=== PATIENT | female | born 1950 | race Caucasian/White ===

== ENCOUNTER → 2018-06-12 | Outpatient (CLI) | payer MEDICARE, OTHER ==
--- NOTE | 2018-06-14 22:42 | MR ---
MR scan right wrist. History wrist pain and swelling. Limited movement. Comparison none. TECHNIQUE: Multiplanar multiecho imaging of the right wrist was performed with no contrast. FINDINGS: The carpal bones are intact. There is no evidence of avascular necrosis. There is slight widening of the scapholunate joint space. There is no evidence of a fracture. There is a mild wrist joint effusio n. I see no focal bone destruction. Visualized metacarpals are intact. The flexor tendons of the wris t are intact. Extensor tendons are intact. I see no significant joint space narrowing. IMPRESSION: Slight widening of the scapholunate joint space consistent with old ligamentous injury. No fracture. No evidence of ligament or tendon tear. Wrist joint effusion consistent with nonspecific synovitis.
== END | disposition home or self-care (01) ==
LOC: RADMRIMAIN 16:31
PROVIDERS: ATTEND Nurse Practitioner Family
DX: M25.431 Effusion, right wrist (principal)

== ENCOUNTER 2018-07-05 10:36 | Emergency (ER) | payer MEDICARE, OTHER ==
[2018-07-05 10:50] VITALS: RESP 16
--- NOTE | 2018-07-05 11:33 | ED ---
General Adult HPI - General Chief complaint: Recheck/Abnormal Lab/Rx Stated complaint: Hypoglycemic Time Seen by Provider: 07/05/18 11:00 Source: patient, RN notes reviewed Mode of arrival: EMS Limitations: no limitations - History of Present Illness Initial comments: This is a 68-year-old female with past medical history significant for diabetes. Patient's boyfriend called EMS she states she doesn't know why because she believes her sugar was 86. Patient states she has no complaint per patient denies any headache patient denies numbness weakness. Patient denies chest pain difficulty breathing first breath per patient denies any recent fever chills or cough per patient denies any abdominal pain patient denies nausea vomiting diarrhea. Patient states she took her insulin and normal type and a full breakfast this morning. Patient states currently she has no symptoms whatsoever. Patient states she does not want to be here would like to go home. Per the nursing report EMS stated her sugar was 60 when he arrived and she was given something he was up in the 80s. - Related Data Home Medications Medication Instructions Recorded Confirmed Aspirin 1 tab PO DAILY 09/23/14 07/05/18 Insulin Glargine [Lantus] 55 unit SQ HS 09/23/14 07/05/18 Isosorbide Mononitrate ER [Imdur] 30 mg PO DAILY 09/23/14 07/05/18 Ranitidine HCl [Zantac] 150 mg PO BID 09/23/14 07/05/18 Simvastatin [Zocor] 40 mg PO DAILY 09/23/14 07/05/18 Acetaminophen with Codeine 1 tab PO BID PRN 07/05/18 07/05/18 [Tylenol w/codeine #3] Atenolol [Tenormin] 25 mg PO DAILY 07/05/18 07/05/18 Enalapril [Vasotec] 20 mg PO BID 07/05/18 07/05/18 Furosemide [Lasix] 20 mg PO DAILY 07/05/18 07/05/18 Gabapentin [Neurontin] 100 mg PO TID 07/05/18 07/05/18 Insulin Lispro [Humalog] 30 unit SQ TID-W/MEALS 07/05/18 07/05/18 amLODIPine [Norvasc] 10 mg PO DAILY 01/06/19 01/06/19 cloNIDine HCL [Catapres] 0.2 mg PO TID 07/05/18 07/05/18 Allergies Allergy/AdvReac Type Severity Reaction Status Date / Time Latex, Natural Rubber Allergy Unknown Verified 07/05/18 12:28 Review of Systems ROS Statement: Those systems with pertinent positive or pertinent negative responses have been documented in the HPI. ROS Other: All systems not noted in ROS Statement are negative. Past Medical History Past Medical History: Diabetes Mellitus, Hypertension Additional Past Medical History / Comment(s): gout History of Any Multi-Drug Resistant Organisms: None Reported Past Surgical History: Coronary Bypass/CABG, Heart Catheterization With Stent, Hysterectomy Past Psychological History: Depression Smoking Status: Never smoker Past Alcohol Use History: None Reported Past Drug Use History: None Reported General Exam - General Exam Comments Initial Comments: GENERAL: Patient is well-developed and well-nourished. Patient is nontoxic and well- hydrated and is in no acute distress. ENT: Neck is soft and supple. No significant lymphadenopathy is noted. Oropharynx is clear. Moist mucous membranes. Neck has full range of motion without eliciting any pain. EYES: The sclera were anicteric and conjunctiva were pink and moist. Extraocular movements were intact and pupils were equal round and reactive to light. Eyelids were unremarkable. PULMONARY: Unlabored respirations. Good breath sounds bilaterally. No audible rales rhonchi or wheezing was noted. CARDIOVASCULAR: There is a regular rate and rhythm without any murmurs gallops or rubs. ABDOMEN: Soft and nontender with normal bowel sounds. No palpable organomegaly was noted. There is no palpable pulsatile mass. SKIN: Skin is clear with no lesions or rashes and otherwise unremarkable. NEUROLOGIC: Patient is alert and oriented x3. Cranial nerves II through XII are grossly intact. Motor and sensory are also intact. Normal speech, volume and content. Symmetrical smile. MUSCULOSKELETAL: Normal extremities with adequate strength and full range of motion. No lower extremity swelling or edema. No calf tenderness. LYMPHATICS: No significant lymphadenopathy is noted PSYCHIATRIC: Normal psychiatric evaluation. Limitations: no limitations Course Vital Signs 07/05/18 10:39 Temperature 97.6 F Pulse Rate 57 L Respiratory 16 Rate Blood Pressure 164/56 O2 Sat by Pulse 98 Oximetry Medical Decision Making - Medical Decision Making EKG shows sinus bradycardia 52 bpm MT interval is 272 QRS is 84 QT interval 442 QTC is 411. Patient's EKG shows some flipped T waves in leads 1 and aVL. However from an old EKG from 2010 she has similar flipped T waves. No acute changes are noted. Patient ate sandwiches and drank some juice in the emergency department she had no problem. Her latest sugar was 156. Patient continues to be without complaint. - Lab Data Result diagrams: 07/05/18 11:42 07/05/18 11:42 Lab Results 07/05/18 07/05/18 07/05/18 Range/Units 11:07 11:42 11:42 WBC 9.4 (3.8-10.6) k/uL RBC 4.30 (3.80-5.40) m/uL Hgb 12.1 (11.4-16.0) gm/dL Hct 38.9 (34.0-46.0) % MCV 90.5 (80.0-100.0) fL MCH 28.2 (25.0-35.0) pg MCHC 31.1 (31.0-37.0) g/dL RDW 15.1 (11.5-15.5) % Plt Count 276 (150-450) k/uL Neutrophils % 83 % Lymphocytes % 9 % Monocytes % 5 % Eosinophils % 1 % Basophils % 1 % Neutrophils # 7.8 H (1.3-7.7) k/uL Lymphocytes # 0.8 L (1.0-4.8) k/uL Monocytes # 0.5 (0-1.0) k/uL Eosinophils # 0.1 (0-0.7) k/uL Basophils # 0.1 (0-0.2) k/uL Sodium 140 (137-145) mmol/L Potassium 4.3 (3.5-5.1) mmol/L Chloride 105 (98-107) mmol/L Carbon Dioxide 30 (22-30) mmol/L Anion Gap 5 mmol/L BUN 19 H (7-17) mg/dL Creatinine 0.92 (0.52-1.04) mg/dL Est GFR (CKD-EPI)AfAm 74 (>60 ml/min/1.73 sqM) Est GFR (CKD-EPI)NonAf 64 (>60 ml/min/1.73 sqM) Glucose 72 L (74-99) mg/dL POC Glucose (mg/dL) 61 L (75-99) mg/dL POC Glu Egg Buyer ID Calcium 9.3 (8.4-10.2) mg/dL Total Bilirubin 0.4 (0.2-1.3) mg/dL AST 22 (14-36) U/L ALT 31 (9-52) U/L Alkaline Phosphatase 80 (38-126) U/L Total Protein 6.6 (6.3-8.2) g/dL Albumin 3.7 (3.5-5.0) g/dL Urine Color Urine Appearance (Clear) Urine pH (5.0-8.0) Ur Specific [place] (1.001-1.035) Urine Protein (Negative) Urine Glucose (UA) (Negative) Urine Ketones (Negative) Urine Blood (Negative) Urine Nitrite (Negative) Urine Bilirubin (Negative) Urine Urobilinogen (<2.0) mg/dL Ur Leukocyte Esterase (Negative) 07/05/18 Range/Units 11:51 WBC (3.8-10.6) k/uL RBC (3.80-5.40) m/uL Hgb (11.4-16.0) gm/dL Hct (34.0-46.0) % MCV (80.0-100.0) fL MCH (25.0-35.0) pg MCHC (31.0-37.0) g/dL RDW (11.5-15.5) % Plt Count (150-450) k/uL Neutrophils % % Lymphocytes % % Monocytes % % Eosinophils % % Basophils % % Neutrophils # (1.3-7.7) k/uL Lymphocytes # (1.0-4.8) k/uL Monocytes # (0-1.0) k/uL Eosinophils # (0-0.7) k/uL Basophils # (0-0.2) k/uL Sodium (137-145) mmol/L Potassium (3.5-5.1) mmol/L Chloride (98-107) mmol/L Carbon Dioxide (22-30) mmol/L Anion Gap mmol/L BUN (7-17) mg/dL Creatinine (0.52-1.04) mg/dL Est GFR (CKD-EPI)AfAm (>60 ml/min/1.73 sqM) Est GFR (CKD-EPI)NonAf (>60 ml/min/1.73 sqM) Glucose (74-99) mg/dL POC Glucose (mg/dL) (75-99) mg/dL POC Glu Egg Buyer ID Calcium (8.4-10.2) mg/dL Total Bilirubin (0.2-1.3) mg/dL AST (14-36) U/L ALT (9-52) U/L Alkaline Phosphatase (38-126) U/L Total Protein (6.3-8.2) g/dL Albumin (3.5-5.0) g/dL Urine Color Colorless Urine Appearance Clear (Clear) Urine pH 6.5 (5.0-8.0) Ur Specific [place] 1.001 (1.001-1.035) Urine Protein Negative (Negative) Urine Glucose (UA) Negative (Negative) Urine Ketones Negative (Negative) Urine Blood Negative (Negative) Urine Nitrite Negative (Negative) Urine Bilirubin Negative (Negative) Urine Urobilinogen <2.0 (<2.0) mg/dL Ur Leukocyte Esterase Negative (Negative) Disposition Clinical Impression: Hypoglycemia Disposition: HOME SELF-CARE Instructions: Hypoglycemia in a Person with Diabetes (ED) Is patient prescribed a controlled substance at d/c from ED?: No Referrals: Kiko Justin MD [Primary Care Provider] - 1-2 days Time of Disposition: 13:04
[2018-07-05 11:36] LABS: Glucose,Whole Blood 61 mg/dL (75-99)
[2018-07-05 12:03] LABS: Basophils # (A) 0.1 k/uL (0-0.2); Basophils % (A) 1 %; Eosinophils # (A) 0.1 k/uL (0-0.7); Eosinophils % (A) 1 %; HCT 38.9 % (34.0-46.0); HGB 12.1 gm/dL (11.4-16.0); Lymphocytes # (A) 0.8 k/uL (1.0-4.8); Lymphocytes % (A) 9 %; MCH 28.2 pg (25.0-35.0); MCHC 31.1 g/dL (31.0-37.0); MCV 90.5 fL (80.0-100.0); Mean Platelet Volume 7.5; Monocytes # (A) 0.5 k/uL (0-1.0); Monocytes % (A) 5 %; Neutrophils # (A) 7.8 k/uL (1.3-7.7); Neutrophils % (A) 83 %; Platelet Count 276 k/uL (150-450); RDW 15.1 % (11.5-15.5); WBC 9.4 k/uL (3.8-10.6)
[2018-07-05 12:08] LABS: Appearance,Urine Clear (Clear); Bilirubin,Urine Negative (Negative); Blood,Urine Negative (Negative); Color,Urine Colorless; Glucose,Urine (UA) Negative (Negative); Ketones,Urine Negative (Negative); Leukocyte Esterase,Urine Negative (Negative); Nitrite,Urine Negative (Negative); PH, Urine 6.5 (5.0-8.0); Protein,Urine Negative (Negative); Specific Gravity,Urine 1.001 (1.001-1.035); Urobilinogen,Urine <2.0 mg/dL (<2.0)
[2018-07-05 12:15] LABS: Albumin 3.7 g/dL (3.5-5.0); Calcium 9.3 mg/dL (8.4-10.2); Potassium 4.3 mmol/L (3.5-5.1); Total Bilirubin 0.4 mg/dL (0.2-1.3); Total Protein 6.6 g/dL (6.3-8.2)
[2018-07-05 13:34] VITALS: BP 138/70; PULSE 70; TEMP 97.8
[2018-07-05 16:05] LABS: Glucose,Whole Blood 156 mg/dL (75-99)
[2018-07-06 11:37] LABS: Hemoglobin A1C 7.8 % (4.0-6.0)
== END 2018-07-05 13:32 | disposition home or self-care (01) ==
LOC: EC 10:36
DX: E11.649 Type 2 diabetes mellitus with hypoglycemia without coma (principal); R00.1 Bradycardia, unspecified; I10 Essential (primary) hypertension; Z79.4 Long term (current) use of insulin; Z79.82 Long term (current) use of aspirin; Z79.899 Other long term (current) drug therapy; Z91.040 Latex allergy status; Z91.048 Other nonmedicinal substance allergy status; Z95.1 Presence of aortocoronary bypass graft
CPT/HCPCS: 36415; 80053; 81003; 83036; 85025; 93005; 99284

== ENCOUNTER 2018-10-07 13:36 | Emergency (ER) | payer MEDICARE, OTHER ==
[2018-10-07 14:13] VITALS: BP 158/58; PULSE 61; RESP 16; TEMP 99
--- NOTE | 2018-10-07 15:42 | XR ---
EXAMINATION TYPE: XR elbow complete LT DATE OF EXAM: 10/07/2018 CLINICAL HISTORY: Left elbow pain. TECHNIQUE: Frontal, lateral and oblique images of the left elbow are obtained. COMPARISON: None FINDINGS: There is no acute fracture/dislocation evident in the left elbow. No abnormal fat pad sig ns are seen. The overlying soft tissue appears unremarkable. IMPRESSION: Unremarkable study.
--- NOTE | 2018-10-07 15:43 | XR ---
EXAMINATION TYPE: XR chest 2V DATE OF EXAM: 10/07/2018 COMPARISON: 10/03/2010 HISTORY: Chest pain when coughing TECHNIQUE: Frontal and lateral views of the chest are obtained. FINDINGS: There is no focal air space opacity, pleural effusion, or pneumothorax seen. Cardia medias tinal silhouette is mildly prominent with post CABG changes noted.. The osseous structures are inta ct. Mild multilevel degenerative changes of the thoracic spine are seen. Surgical clips are present w ithin the right upper quadrant. IMPRESSION: No acute cardiopulmonary process.
--- NOTE | 2018-10-07 15:46 | ED ---
URI HPI - General Chief Complaint: Upper Respiratory Infection Stated Complaint: Cough & Elbow Injury Time Seen by Provider: 10/07/18 15:15 Source: patient, RN notes reviewed Mode of arrival: ambulatory Limitations: no limitations - History of Present Illness Initial Comments: 68-year-old female presents emergency Department with chief complaint of cough congestion last 3-4 days. She states she has mildly productive cough has a chest pain or shortness of breath. Patient states that she's had subjective fever and chills. Patient had mild runny nose, sore throat no ear pain no headache or dizziness. Patient states that she also has left elbow pain after running into a door with it. Patient states the pain is worse with movement or left elbow. Patient does have a noted abrasion but states that she is up-to-date on tetanus. Patient denies any paresthesias. Patient offers no other complaints. - Related Data Home Medications Medication Instructions Recorded Confirmed Aspirin 325 mg PO DAILY 09/23/14 10/07/18 Isosorbide Mononitrate ER [Imdur] 30 mg PO DAILY 09/23/14 10/07/18 Ranitidine HCl [Zantac] 150 mg PO BID 09/23/14 10/07/18 Simvastatin [Zocor] 40 mg PO DAILY 09/23/14 10/07/18 Enalapril [Vasotec] 20 mg PO BID 07/05/18 10/07/18 Furosemide [Lasix] 20 mg PO DAILY 07/05/18 10/07/18 Gabapentin [Neurontin] 100 mg PO TID 07/05/18 10/07/18 amLODIPine [Norvasc] 10 mg PO DAILY 07/05/18 10/07/18 cloNIDine HCL [Catapres] 0.2 mg PO TID 07/05/18 10/07/18 Acetaminophen-Codeine 300-30mg 1 tab PO TID 10/07/18 10/07/18 [Tylenol w/codeine #3] Atenolol 100 mg PO DAILY 10/07/18 10/07/18 Atenolol [Tenormin] 50 mg PO PC-SUPPER 10/07/18 10/07/18 INSULIN LISPRO (humaLOG) [humaLOG] 35 unit SQ AC-TID 10/07/18 10/07/18 Insulin Glargine [Lantus] 55 unit SQ HS 10/07/18 10/07/18 Previous Rx's Medication Instructions Recorded Azithromycin [Zithromax Z-pack] 0 mg PO DIRECTED #1 pack 10/07/18 Allergies Allergy/AdvReac Type Severity Reaction Status Date / Time Latex, Natural Rubber Allergy Unknown Verified 10/07/18 16:13 Review of Systems ROS Statement: Those systems with pertinent positive or pertinent negative responses have been documented in the HPI. ROS Other: All systems not noted in ROS Statement are negative. Past Medical History Past Medical History: Diabetes Mellitus, Hypertension Additional Past Medical History / Comment(s): gout History of Any Multi-Drug Resistant Organisms: None Reported Past Surgical History: Coronary Bypass/CABG, Heart Catheterization With Stent, Hysterectomy Past Psychological History: Depression Smoking Status: Never smoker Past Alcohol Use History: None Reported Past Drug Use History: None Reported General Exam Limitations: no limitations General appearance: alert, in no apparent distress Head exam: Present: atraumatic, normocephalic, normal inspection Eye exam: Present: normal appearance, PERRL, EOMI. Absent: scleral icterus, conjunctival injection, periorbital swelling ENT exam: Present: normal exam, normal oropharynx, mucous membranes moist, TM's normal bilaterally Neck exam: Present: normal inspection. Absent: tenderness, meningismus, lymphadenopathy Respiratory exam: Present: normal lung sounds bilaterally. Absent: respiratory distress, wheezes, rales, rhonchi, stridor Cardiovascular Exam: Present: regular rate, normal rhythm, normal heart sounds. Absent: systolic murmur, diastolic murmur, rubs, gallop, clicks Extremities exam: Present: other (Left elbow there is mild discomfort with palpation, small abrasion with no surrounding erythema or discharge. Patient has appears or chills. Patient's radial pulses equal bilaterally patient's full range of motion) Skin exam: Present: warm, dry, intact, normal color. Absent: rash Course Vital Signs 10/07/18 10/07/18 14:11 15:30 Temperature 99 F Pulse Rate 61 Respiratory 16 16 Rate Blood Pressure 158/58 O2 Sat by Pulse 97 Oximetry Medical Decision Making - Medical Decision Making 68-year-old female present for a cough. Chest x-ray shows no acute abnormality, influenza negative x-ray of the left elbow was negative for acute fracture. Patient treated for acute bronchitis with azithromycin. Return parameters were discussed. - Lab Data Lab Results 10/07/18 Range/Units 15:30 Influenza Type A RNA Not Detected (Not Detectd) Influenza Type B (PCR) Not Detected (Not Detectd) Disposition Clinical Impression: Bronchitis, Left elbow contusion Disposition: HOME SELF-CARE Condition: Stable Instructions (If sedation given, give patient instructions): Upper Respiratory Infection (ED) Additional Instructions: Please return to the Emergency Department if symptoms worsen or any other concerns. Prescriptions: Azithromycin [Zithromax Z-pack] 0 mg PO DIRECTED #1 pack Is patient prescribed a controlled substance at d/c from ED?: No Referrals: Kiko Justin MD [Primary Care Provider] - 1-2 days Time of Disposition: 16:47
== END 2018-10-07 17:00 | disposition home or self-care (01) ==
LOC: EC 13:36
DX: S50.02XA Contusion of left elbow, initial encounter (principal); J40 Bronchitis, not specified as acute or chronic; E11.9 Type 2 diabetes mellitus without complications; I10 Essential (primary) hypertension; F32.9 Major depressive disorder, single episode, unspecified; Z79.4 Long term (current) use of insulin; Z79.82 Long term (current) use of aspirin; Z79.899 Other long term (current) drug therapy; Z91.040 Latex allergy status; Z95.5 Presence of coronary angioplasty implant and graft; Z95.1 Presence of aortocoronary bypass graft; W22.8XXA Striking against or struck by other objects, initial encounter
CPT/HCPCS: 71046; 87502; 99283